=== PATIENT | male | born 1965 | race African-American/Black ===

== ENCOUNTER 2023-10-16 20:27 | Emergency (ER) | payer OTHER ==
[2023-10-16 20:41] VITALS: BP 117/69; PULSE 66; RESP 18; TEMP 98.7; BMI 31.3
[2023-10-16] MEDS ORDERED: DIPHTH,PERTUSS(ACELL),TET 0.5 ML DISP.SYRIN IM ONE (21:40)
[2023-10-16] MEDS: DIPHTH,PERTUSS(ACELL),TET 0.5 ML DISP.SYRIN IM ONE (21:43)
== END 2023-10-16 21:55 | disposition home or self-care (01) ==
LOC: JERFT 20:27
PROC: 3E0234Z Introduction of Serum, Toxoid and Vaccine into Muscle, Percutaneous Approach (ICD-10-PCS; principal; 2023-10-16)
DX: S61.213A Laceration without foreign body of left middle finger without damage to nail, initial encounter (principal); W29.3XXA Contact with powered garden and outdoor hand tools and machinery, initial encounter; Z23 Encounter for immunization
CPT/HCPCS: 90715; 99284-25